=== PATIENT | male | born 1990 | race African-American/Black ===

== ENCOUNTER 2024-09-13 17:00 | Inpatient (IN) | payer MEDICAID ==
[~2024-09-13] VITALS: Ht 167.6 cm; Wt 84.2 kg
[2024-09-13] MEDS ORDERED: ONDANSETRON HCL/PF 4 MG/2 ML VIAL ONE (17:42)
[2024-09-13] MEDS ORDERED: HYDROMORPHONE 1 MG/1 ML DISP.SYRIN ONE (17:43)
[2024-09-13] MEDS: ONDANSETRON HCL/PF - ER 4 MG/2 ML VIAL IV ONE (17:45)
[2024-09-13] MEDS: HYDROMORPHONE 1 MG/1 ML DISP.SYRIN IV ONE (17:46)
[2024-09-13 17:50] LABS: PLATELET COUNT (AUTO) 497 K/uL (150-450); RED BLOOD CELL COUNT(AUTO) 5.90 MIL/uL (4.5-6.0); RED CELL DISTRIBUTION WIDTH 19.9 % (11.5-15.0); WHITE BLOOD COUNT (AUTO) 14.2 K/uL (4.3-11.0)
[2024-09-13 17:59] LABS: CALCIUM, SERUM 9.1 mg/dL (8.5-10.1); CREATININE 0.7 mg/dL (0.6-1.3); SODIUM SERUM 137.0 mmol/L (136-145); UREA NITROGEN, BLOOD 17.0 mg/dL (7-18)
[2024-09-13 18:02] LABS: INR 1.11 (0.91-1.10)
[2024-09-13 18:07] LABS: ASPARTATE AMINOTRANSFERASE 10.0 U/L (15-37); TOTAL PROTEIN, SERUM 8.8 g/dL (6.4-8.2)
[2024-09-13 18:09] LABS: LACTIC ACID 1.4 mmol/L (0.4-2.0)
[2024-09-13] MEDS ORDERED: PIPERACI/TAZO 3.375GM/D5W 50ML PB IV ONE (18:12)
[2024-09-13] MEDS: PIPERACILLIN /TAZOBACTAM 3.375 G in IV D5W 50 ML IV ONE (18:20)
[2024-09-13] MEDS: IV NS 0.9% 1,000 ML BAG IV ONE (18:20)
[2024-09-13] MEDS ORDERED: VANCOMYCIN 1 GM /D5W 250 ML PB IV ONE (18:55)
[2024-09-13] MEDS: VANCOMYCIN 1 GM in IV D5W 250 ML IV ONE (19:05)
[2024-09-13 20:30] VITALS: BP 150/96; TEMP 98.6; O2SAT 96
[2024-09-13] MEDS ORDERED: MAG HYDROX/AL HYDROX/SIMETH 30 ML UDC PO PRN (20:30)
[2024-09-13] MEDS ORDERED: MORPHINE SULFATE INJ 4 MG/ML DISP.SYRIN IV PRN (20:30)
[2024-09-13] MEDS ORDERED: ONDANSETRON HCL/PF 4 MG/2 ML VIAL IVP PRN (20:30)
[2024-09-13] MEDS ORDERED: DOSING PER PHARMACY-ZOSYN IV 1 EA EA XX PRN (20:30)
[2024-09-13] MEDS ORDERED: ACETAMINOPHEN 325 MG TABLET PO PRN (20:30)
[2024-09-13] MEDS ORDERED: MAGNESIUM HYDROXIDE 30 ML UDC PO PRN (20:30)
[2024-09-13] MEDS ORDERED: DOSING PER PHARMACY-VANCOMYCIN IV XX PRN (20:30)
[2024-09-13] MEDS: HYDROCODONE/APAP 5/325MG TABLET PO PRN (20:48)
[2024-09-13] MEDS: IV NS 0.9% 1,000 ML IV SCH (21:02)
[2024-09-13] MEDS: PIPERACILLIN /TAZOBACTAM 3.375 G in IV D5W 100 ML IV SCH (21:19)
[2024-09-14] VITALS: BP 145/89; TEMP 97.9; O2SAT 97
[2024-09-14] MEDS: VANCOMYCIN HCL 1.25 GM in IV D5W 250 ML IV SCH (02:02)
[2024-09-14 04:00] VITALS: BP 147/83; TEMP 98.5; O2SAT 95
[2024-09-14] MEDS: PANTOPRAZOLE 40 MG TABLET.DR PO SCH (07:30)
[2024-09-14 08:00] VITALS: BP 140/93; TEMP 97.9; O2SAT 96
[2024-09-14] MEDS: NICOTINE PATCH (14MG) 14 MG PATCH.TD24 TD SCH (09:16)
[2024-09-14 11:30] VITALS: BP 120/72; TEMP 98.2; O2SAT 99
[2024-09-14 16:00] VITALS: BP 138/93; TEMP 98.6; O2SAT 95
[2024-09-14] MEDS: ENSURE ENLIVE CHOC 237 ML CAN PO SCH (17:15)
[2024-09-14 20:00] VITALS: BP 128/78; TEMP 98.4; O2SAT 98
[2024-09-15] VITALS: BP 135/85; TEMP 98.6; O2SAT 98
[2024-09-15 04:00] VITALS: BP 155/105; TEMP 98.4; O2SAT 98
[2024-09-15 07:00] VITALS: BP 149/105; TEMP 98.4; O2SAT 100
[2024-09-15] MEDS: IV NS 0.9% 1,000 ML IV PRN (10:42)
[2024-09-15 11:30] VITALS: BP 127/91; TEMP 97.1; O2SAT 98
[2024-09-15] MEDS: MUPIROCIN OINT 2% 22 GM TUBE NS SCH (11:48)
[2024-09-15 16:00] VITALS: BP 104/72; TEMP 98.2; O2SAT 98
[2024-09-15 20:00] VITALS: BP 111/89; TEMP 98.8; O2SAT 98
[2024-09-15] MEDS: MEROPENEM 1 G in IV NS 0.9% 100 ML IV ONE (23:01)
[2024-09-16] VITALS: BP 127/90; TEMP 99.5; O2SAT 96
[2024-09-16 08:00] VITALS: BP_SYST 140; BP_DIAS 105; BP_DIAS 95; TEMP 98.4; O2SAT 98
[2024-09-16] MEDS: PAROXETINE HCL 10 MG TABLET PO SCH (08:54)
[2024-09-16] MEDS: MEROPENEM 1 G in IV NS 0.9% 100 ML IV SCH (09:00)
[2024-09-16 11:30] VITALS: BP 149/104; TEMP 98.8; O2SAT 99
[2024-09-16] MEDS ORDERED: CIPR500T5 PO (12:30)
[2024-09-16] MEDS ORDERED: PARO10TA4 PO (12:30)
[2024-09-16] MEDS: DOXYCYCLINE HYCLATE (100 MG) 100 MG TABLET PO SCH (13:15)
== END 2024-09-16 18:05 | disposition home or self-care (01) | DRG 383 ==
LOC: ER 17:05 → MED 19:15 → TELE 09-14 00:36
DX: L03.115 Cellulitis of right lower limb (principal); G82.20 Paraplegia, unspecified; E44.1 Mild protein-calorie malnutrition; E88.09 Other disorders of plasma-protein metabolism, not elsewhere classified; L97.518 Non-pressure chronic ulcer of other part of right foot with other specified severity; M86.8X7 Other osteomyelitis, ankle and foot; F11.10 Opioid abuse, uncomplicated; B87.0 Cutaneous myiasis; E66.01 Morbid (severe) obesity due to excess calories; F10.90 Alcohol use, unspecified, uncomplicated; F17.210 Nicotine dependence, cigarettes, uncomplicated; F19.10 Other psychoactive substance abuse, uncomplicated; L03.116 Cellulitis of left lower limb; Z59.02 Unsheltered homelessness; R70.0 Elevated erythrocyte sedimentation rate; F33.9 Major depressive disorder, recurrent, unspecified; Z22.322 Carrier or suspected carrier of Methicillin resistant Staphylococcus aureus; Z99.3 Dependence on wheelchair; R00.0 Tachycardia, unspecified; Z68.30 Body mass index [BMI] 30.0-30.9, adult; F13.10 Sedative, hypnotic or anxiolytic abuse, uncomplicated; L97.822 Non-pressure chronic ulcer of other part of left lower leg with fat layer exposed; L97.812 Non-pressure chronic ulcer of other part of right lower leg with fat layer exposed; L97.522 Non-pressure chronic ulcer of other part of left foot with fat layer exposed; Z53.20 Procedure and treatment not carried out because of patient's decision for unspecified reasons
CPT/HCPCS: 36415; 73590-TC; 80048-TC; 80076-TC; 83605-TC; 83735-TC; 84484-TC; 85025-TC; 85652-TC; 85730-TC; 86140-TC; 87040-TC; 87081-TC; 98960; A4223; A6253; A6403; G0378; J1171; J2185; J2405; J2543; J3370; J7030; J7050; J7060